=== PATIENT | female | born 1985 | race Caucasian/White ===

== ENCOUNTER 2016-05-20 11:55 | Emergency (ER) | payer OTHER ==
[~2016-05-20] VITALS: Ht 172.7 cm; Wt 79.0 kg
[~2016-05-20 11:55] MED LIST: ALBUTEROL17 GM IH; FLOMAX0.4 M1 PO; MACROBID100 MG PO; NOHOMEMEDS; PERCOCET 5/31 TABLET PO
[2016-05-20 12:44] LABS: HEMATOCRIT 37.6 % (36.0-46.0); MCH 30.4 PG (29.0-34.0); MCHC 34.6 G/DL (30.0-36.0); MCV 88.1 FL (83-99); PLATELET COUNT 264 K/uL (156-360); RBC DIS.WIDTH-CV 12.1 % (11.8-14.6); RBC DIS.WIDTH-SD 38.1 % (39-53); RED BLOOD COUNT 4.27 M/uL (3.80-5.20); WHITE BLOOD COUNT 8.4 K/uL (4.1-10.2)
[2016-05-20 12:55] LABS: CHLORIDE 110 mEq/L (99-109); POTASSIUM 3.8 mEq/L (3.7-5.4); SODIUM 140 mEq/L (136-147)
[2016-05-20 12:57] LABS: GLUCOSE 87 mg/dL (70-99)
[2016-05-20 12:58] LABS: ANION GAP 9 MEQ/L (2-14)
[2016-05-20 13:01] LABS: GFR ESTIMATE (CALCULATED) > 59 mL/min/
[2016-05-20 13:02] LABS: UREA NITROGEN (BUN) 5 mg/dL (9-23)
[2016-05-20 13:09] LABS: QUANTITATIVE HCG 2936.7 MIU/ML
[2016-05-20] MEDS ORDERED: TYLENOL WITH C1 EACH PO (14:25)
[2016-05-20 14:39] VITALS: BP 130/80
[2016-05-20 14:55] LABS: ADD MIUA? YES; BILIRUBIN NEGATIVE; BLOOD MODERATE; COLOR STRAW ((YELLOW)); GLUCOSE (STRIP) NEGATIVE; KETONES NEGATIVE; LEUKOCYTES NEGATIVE; NITRITE NEGATIVE; PROTEIN (STRIP) NEGATIVE; SPECIFIC GRAVITY 1.009 (1.000-1.030); UROBILINOGEN 0.2 MG/DL (0.2-1.0)
[2016-05-20 15:07] LABS: BACTERIA RARE /HPF; EPITHELIAL CELLS RARE /HPF; MUCUS TRACE /LPF; UCUL ADDED? NO; WHITE BLOOD CELLS 0-5 /HPF (0-5)
[2016-05-22] MEDS ORDERED: PRENATAL TABLE1 EAC3 PO (12:56)
[2016-05-22] MEDS ORDERED: PROAIR HFA8.5 GM IH (12:56)
[2016-05-22] MEDS ORDERED: FEOSOL325 MG PO (12:57)
[2016-05-22] MEDS ORDERED: FOLIC ACID0.4 MG PO (12:58)
[2016-05-22] MEDS ORDERED: TYLENOL WITH C1 EACH PO (12:59)
[2016-05-22] MEDS ORDERED: CYTOTEC200 MCG PO (13:00)
== END 2016-05-20 14:50 | disposition home or self-care (01) ==
LOC: EME 11:55
PROVIDERS: Emergency Medicine
DX: O02.1 Missed abortion (principal); R10.2 Pelvic and perineal pain; Z3A.01 Less than 8 weeks gestation of pregnancy; Z88.6 Allergy status to analgesic agent
CPT/HCPCS: 76801; 80048; 81003; 84702; 85027; 86850; 86900; 86901; 99281; 99285; J7030

== ENCOUNTER 2016-08-16 16:18 | Emergency (ER) | payer OTHER ==
[~2016-08-16] VITALS: Ht 172.7 cm; Wt 78.1 kg
[~2016-08-16 16:18] MED LIST changes: +CYTOTEC200 MCG PO; +FEOSOL325 MG PO; +FOLIC ACID0.4 MG PO; +PRENATAL TABLE1 EAC3 PO; +PROAIR HFA8.5 GM IH; +TYLENOL WITH C1 EACH PO
[2016-08-16 17:16] LABS: HEMATOCRIT 41.2 % (36.0-46.0); MCH 30.4 PG (29.0-34.0); MCHC 34.7 G/DL (30.0-36.0); MCV 87.5 FL (83-99); MEAN PLAT.VOLUME 9.1 uM^3 (9.5-12.4); PLATELET COUNT 332 K/uL (156-360); RBC DIS.WIDTH-CV 12.3 % (11.8-14.6); RBC DIS.WIDTH-SD 39.5 % (39-53); RED BLOOD COUNT 4.71 M/uL (3.80-5.20); WHITE BLOOD COUNT 6.9 K/uL (4.1-10.2)
[2016-08-16 17:29] LABS: CHLORIDE 107 mEq/L (99-109)
[2016-08-16 17:30] LABS: AMYLASE 84 IU/L (1-118); POTASSIUM 3.9 mEq/L (3.7-5.4); SODIUM 140 mEq/L (136-147)
[2016-08-16 17:32] LABS: GLUCOSE 83 mg/dL (70-99)
[2016-08-16 17:33] LABS: ANION GAP 9 MEQ/L (2-14)
[2016-08-16 17:34] LABS: TOTAL BILIRUBIN 0.6 mg/dL (0.0-1.0)
[2016-08-16 17:35] LABS: ALKALINE PHOSPHATASE 58 IU/L (3-129); GFR ESTIMATE (CALCULATED) > 59 mL/min/
[2016-08-16 17:37] LABS: UREA NITROGEN (BUN) 9 mg/dL (9-23)
[2016-08-16 17:39] LABS: LIPASE 28 U/L (1.0-51.0)
[2016-08-16 17:41] LABS: ADD MIUA? YES; BILIRUBIN NEGATIVE; BLOOD NEGATIVE; COLOR YELLOW ((YELLOW)); GLUCOSE (STRIP) NEGATIVE; KETONES NEGATIVE; LEUKOCYTES NEGATIVE; NITRITE NEGATIVE; PROTEIN (STRIP) 100; SPECIFIC GRAVITY 1.025 (1.000-1.030); UROBILINOGEN 0.2 MG/DL (0.2-1.0)
[2016-08-16 17:46] LABS: QUANTITATIVE HCG < 4.0 MIU/ML
[2016-08-16 17:49] LABS: BACTERIA RARE /HPF; EPITHELIAL CELLS RARE /HPF; MUCUS TRACE /LPF; RED BLOOD CELLS 0-5 /HPF (0-5); WHITE BLOOD CELLS 0-5 /HPF (0-5)
[2016-08-16] MEDS ORDERED: OMEPRAZOLE40 M1 PO (20:37)
[2016-08-16 20:50] VITALS: BP 96/63
== END 2016-08-16 20:55 | disposition home or self-care (01) ==
LOC: EME 16:18
PROVIDERS: Physician Assistant
DX: R10.13 Epigastric pain (principal); J45.909 Unspecified asthma, uncomplicated; Z87.442 Personal history of urinary calculi
CPT/HCPCS: 74177; 80053; 81003; 82150; 83690; 84702; 85027; 99281; 99284; J1885; J7030

== ENCOUNTER 2016-09-17 03:31 | Emergency (ER) | payer OTHER ==
[~2016-09-17] VITALS: Ht 172.7 cm; Wt 82.1 kg
[~2016-09-17 03:31] MED LIST changes: +OMEPRAZOLE40 M1 PO
[2016-09-17 04:02] LABS: ADD MIUA? YES; BILIRUBIN NEGATIVE; BLOOD NEGATIVE; COLOR STRAW ((YELLOW)); GLUCOSE (STRIP) NEGATIVE; KETONES NEGATIVE; LEUKOCYTES TRACE; NITRITE NEGATIVE; PROTEIN (STRIP) NEGATIVE; SPECIFIC GRAVITY 1.005 (1.000-1.030); UROBILINOGEN 0.2 MG/DL (0.2-1.0)
[2016-09-17 04:04] LABS: BACTERIA RARE /HPF; EPITHELIAL CELLS RARE /HPF; MUCUS NONE SEEN /LPF; RED BLOOD CELLS 0-5 /HPF (0-5); UCUL ADDED? NO; WHITE BLOOD CELLS 0-5 /HPF (0-5)
[2016-09-17 05:11] LABS: HEMATOCRIT 39.3 % (36.0-46.0); MCH 30.8 PG (29.0-34.0); MCHC 34.4 G/DL (30.0-36.0); MCV 89.5 FL (83-99); MEAN PLAT.VOLUME 9.1 uM^3 (9.5-12.4); PLATELET COUNT 281 K/uL (156-360); RBC DIS.WIDTH-SD 39.8 % (39-53); RED BLOOD COUNT 4.39 M/uL (3.80-5.20); WHITE BLOOD COUNT 6.1 K/uL (4.1-10.2)
[2016-09-17 05:18] LABS: CHLORIDE 108 mEq/L (99-109); POTASSIUM 3.8 mEq/L (3.7-5.4); SODIUM 137 mEq/L (136-147)
[2016-09-17 05:20] LABS: GLUCOSE 93 mg/dL (70-99)
[2016-09-17 05:22] LABS: ANION GAP 6 MEQ/L (2-14); TOTAL BILIRUBIN 0.3 mg/dL (0.0-1.0)
[2016-09-17 05:24] LABS: ALKALINE PHOSPHATASE 61 IU/L (3-129); GFR ESTIMATE (CALCULATED) > 59 mL/min/
[2016-09-17 05:26] LABS: UREA NITROGEN (BUN) 6 mg/dL (9-23)
[2016-09-17 05:28] LABS: LIPASE 34 U/L (1.0-51.0)
[2016-09-17 05:43] LABS: QUANTITATIVE HCG < 4.0 MIU/ML
[2016-09-17] MEDS ORDERED: MIRALAX255 GM PO (06:05)
[2016-09-17] MEDS ORDERED: BENTYL20 MG PO (06:05)
[2016-09-17] MEDS ORDERED: MOTRIN600 MG PO (06:05)
[2016-09-17 06:18] VITALS: BP 111/83
== END 2016-09-17 06:19 | disposition home or self-care (01) ==
LOC: EME 03:31
PROVIDERS: Nurse Practitioner Family
DX: R10.9 Unspecified abdominal pain (principal); K59.00 Constipation, unspecified; R35.0 Frequency of micturition; R11.0 Nausea; Z87.442 Personal history of urinary calculi
CPT/HCPCS: 74000; 80053; 81003; 83690; 84702; 85027; 87086; 99281; 99284

== ENCOUNTER 2017-10-07 18:29 | Emergency (ER) | payer BC ==
[~2017-10-07] VITALS: Ht 172.7 cm; Wt 78.8 kg
[~2017-10-07 18:29] MED LIST changes: +BENTYL20 MG PO; +MIRALAX255 GM PO; +MOTRIN600 MG PO
[2017-10-07 18:55] LABS: APPEARANCE CLEAR ((CLEAR)); BILIRUBIN NEGATIVE; BLOOD NEGATIVE; COLOR YELLOW ((YELLOW)); GLUCOSE (STRIP) NEGATIVE; KETONES 5; LEUKOCYTES NEGATIVE; NITRITE NEGATIVE; PROTEIN (STRIP) NEGATIVE; SPECIFIC GRAVITY 1.031 (1.000-1.030); UCUL ADDED? NO
[2017-10-07 19:04] LABS: HEMATOCRIT 39.2 % (36.0-46.0); HEMOGLOBIN 13.6 G/DL (11.9-15.5); MCHC 34.7 G/DL (30.0-36.0); MCV 89.3 FL (83-99); PLATELET COUNT 320 K/uL (156-360); RBC DIS.WIDTH-CV 12.1 % (11.8-14.6); RBC DIS.WIDTH-SD 39.9 % (39-53); RED BLOOD COUNT 4.39 M/uL (3.80-5.20); WHITE BLOOD COUNT 7.6 K/uL (4.1-10.2)
[2017-10-07 19:14] LABS: ALBUMIN 4.5 g/dL (3.2-4.8); CHLORIDE 108 mEq/L (99-109); POTASSIUM 3.8 mEq/L (3.7-5.4); SODIUM 139 mEq/L (136-147)
[2017-10-07 19:16] LABS: GLUCOSE 89 mg/dL (70-99); TOTAL PROTEIN 7.6 g/dL (6.4-8.3)
[2017-10-07 19:18] LABS: TOTAL BILIRUBIN 0.3 mg/dL (0.0-1.0)
[2017-10-07 19:20] LABS: ALKALINE PHOSPHATASE 65 IU/L (3-129); CREATININE 0.7 mg/dL (0.6-1.3); GFR ESTIMATE (CALCULATED) > 59 mL/min/
[2017-10-07 19:21] LABS: UREA NITROGEN (BUN) 9 mg/dL (9-23)
[2017-10-07 19:22] LABS: AST (GOT) 16 IU/L (2-34)
[2017-10-07 19:23] LABS: ALT (GPT) 11 IU/L (3-49); LIPASE 97 U/L (1.0-51.0)
[2017-10-07 19:29] LABS: QUANTITATIVE HCG < 4.0 MIU/ML
[2017-10-07 21:50] VITALS: BP 98/67
== END 2017-10-07 21:50 | disposition home or self-care (01) ==
LOC: EME 18:29
DX: N83.201 Unspecified ovarian cyst, right side (principal); J45.909 Unspecified asthma, uncomplicated; F41.9 Anxiety disorder, unspecified; Z87.442 Personal history of urinary calculi; Z88.8 Allergy status to other drugs, medicaments and biological substances
CPT/HCPCS: 74177; 80053; 81003; 83690; 84702; 85027; 99281; 99284; J7030

== ENCOUNTER 2017-10-31 11:27 | Day surgery (SDC) | payer BC ==
[~2017-10-31] VITALS: Ht 172.7 cm; Wt 78.0 kg
[~2017-10-31 11:27] MED LIST changes: +LORTAB 5-325 M1 EACH PO
[2017-10-31 12:50] VITALS: BP 102/56
[2017-10-31] MEDS ORDERED: NORCO 5/3251 TABLET PO (17:07)
[2017-10-31 17:50] VITALS: BP 109/70
[2017-10-31 18:48] VITALS: BP 108/71
== END 2017-10-31 18:55 | disposition home or self-care (01) ==
LOC: SDC 11:27
PROVIDERS: Surgery
PROC: 0YU50JZ Supplement Right Inguinal Region with Synthetic Substitute, Open Approach (ICD-10-PCS; principal; 2017-10-31)
DX: K40.90 Unilateral inguinal hernia, without obstruction or gangrene, not specified as recurrent (principal); J45.909 Unspecified asthma, uncomplicated; Z88.8 Allergy status to other drugs, medicaments and biological substances
CPT/HCPCS: 81025; C1781; J0690; J1170; J1885; J2250; J2405; J3010